=== PATIENT | male | born 1960 | race Hispanic/Latino ===

== ENCOUNTER → 2017-10-17 | Outpatient (CLI) | payer BC | END | disposition home or self-care (01) | LOC: OIH 16:52 | PROVIDERS: ATTEND Internal Medicine | DX: J40 Bronchitis, not specified as acute or chronic (principal) | CPT/HCPCS: 71046 ==

== ENCOUNTER → 2020-02-21 | Outpatient (CLI) | payer BC | END | disposition home or self-care (01) | LOC: RAH 16:35 | PROVIDERS: ATTEND Internal Medicine | DX: M47.12 Other spondylosis with myelopathy, cervical region (principal) | CPT/HCPCS: 72040 ==

== ENCOUNTER → 2023-08-26 | Outpatient (CLI) | payer BC | END | disposition home or self-care (01) | LOC: RAH 15:17 | PROVIDERS: ATTEND Internal Medicine | DX: M16.12 Unilateral primary osteoarthritis, left hip (principal); M25.552 Pain in left hip; M54.16 Radiculopathy, lumbar region; R10.2 Pelvic and perineal pain; M47.817 Spondylosis without myelopathy or radiculopathy, lumbosacral region; I87.8 Other specified disorders of veins; M47.816 Spondylosis without myelopathy or radiculopathy, lumbar region | CPT/HCPCS: 72100; 72170; 73502 ==